=== PATIENT | male | born 1980 | race Caucasian/White ===

== ENCOUNTER 2019-04-11 17:20 | Emergency (ER) | payer OTHER ==
--- NOTE | 2019-04-11 17:25 | PDOC ---
Rapid Medical Evaluation Chief Complaint: Laceration Medical Evaluation: Allergies Allergy/AdvReac Type Severity Reaction Status Date / Time No Known Allergies Allergy Verified 05/07/18 19:10 04/11/19 17:22 I have performed a brief in-person evaluation of this patient. The patient presents with a chief complaint of: stood and cut scalp on sharp metal edge of equipment Pertinent physical exam findings: scalp laceration ~3cm to lateral left scalp, tetanus UTD I have ordered the following: nothing The patient will proceed to the ED for further evaluation. Discharge Disposition - Diagnosis Laceration - Referrals - Patient Instructions - Post Discharge Activity
[2019-04-11 17:29] VITALS: BP 120/78; PULSE 59; TEMP 98.2; BMI 27.3
--- NOTE | 2019-04-11 17:59 | PDOC ---
History of Present Illness - General Chief Complaint: Laceration Stated Complaint: HEAD INJURY Time Seen by Provider: 04/11/19 17:24 History Source: Patient - History of Present Illness Initial Comments: 04/11/19 18:08 Chief complaint: Laceration Patient 38-year-old healthy male states he was doing work in a low area, lifted his head up, cut his scalp, not wearing a helmet. No LOC. Patient states tetanus is up-to-date. Patient is ambulatory. GENERAL/CONSTITUTIONAL: No fever, weakness. dizziness HEAD, EYES, EARS, NOSE AND THROAT: No change in vision. No ear pain or discharge. No sore throat. CARDIOVASCULAR: No chest pain RESPIRATORY: No shortness of breath or cough GASTROINTESTINAL: No pain, nausea, vomiting, diarrhea or constipation GENITOURINARY: No dysuria MUSCULOSKELETAL: No neck or back pain SKIN: No rash, + laceration NEUROLOGIC: No headache, vertigo, loss of consciousness, or loss of sensation. GENERAL: The patient is awake, alert, and fully oriented, in no acute distress. HEAD: 3 cm laceration to left temporal area, scalp, no hematoma, no foreign body , no crepitus or step off. Otherwise, normal with no signs of trauma. EYES: Pupils equal, round and reactive to light, sclera anicteric, conjunctiva clear. ENT: pharynx: no erythema, no exudate, uvula midline NECK: supple CHEST: clear, nontender, rr ABD: soft, nontender BACK: no tenderness or signs of injury EXTREMITIES: Normal range of motion, no edema. NEUROLOGICAL: Normal speech, normal gait.Cranial nerves II through XII grossly intact, no gross focal abnormalities SKIN: Warm, Dry Past History - Past Medical History Allergies/Adverse Reactions: Allergies Allergy/AdvReac Type Severity Reaction Status Date / Time No Known Allergies Allergy Verified 04/11/19 17:25 Home Medications: Ambulatory Orders Cephalexin [Keflex] 1,000 mg PO BID #28 capsule 04/11/19 COPD: No - Suicide/Smoking/Psychosocial Hx Smoking History: Never smoked Information on smoking cessation initiated: No Hx Alcohol Use: No Drug/Substance Use Hx: No Substance Use Type: Cocaine *Physical Exam - Vital Signs Last Vital Signs Temp Pulse Resp BP Pulse Ox 98.2 F 59 L 19 120/78 100 04/11/19 17:23 04/11/19 17:23 04/11/19 17:23 04/11/19 17:23 04/11/19 17:23 Procedures - Laceration/Wound Repair Left Anterior Head Wound Length: 2.6 to 5.0 cm Wound Explored: clean Wound's Depth, Shape: superficial, linear Irrigated w/ Saline: Yes Betadine Prep: Yes Anesthesia: 1% Lidocaine Wound Repaired With: Sutures Suture Size/Type: 5:0, nylon Number of Sutures: 8 Layer Closure: No Sterile Dressing Applied: No Medical Decision Making - Medical Decision Making 04/11/19 18:11 Healthy 38-year-old male, tetanus up-to-date with 3 cm laceration to the left temporal area of the scalp. No hematoma, crepitus or step off, patient cut his head in a low-lying area when he lifted his head up. There is no indication for imaging. Patient will get sutures versus norberto due to better cosmetic appearance given that it's right at the hairline *DC/Admit/Observation/Transfer Diagnosis at time of Disposition: Scalp laceration - Discharge Dispostion Disposition: HOME Condition at time of disposition: Stable - Prescriptions Prescriptions: Cephalexin [Keflex] 1,000 mg PO BID #28 capsule - Referrals - Patient Instructions Printed Discharge Instructions: Laceration Repair Additional Instructions: Do not get wet for 2 days. Apply bacitracin several times a day. Take Keflex as directed, until finished After this you can gently clean it with soap and water and apply bacitracin at least 2 times daily. Have reevaluated if redness, pus or getting worse. Have sutures evaluated for removal in 7 days. 2 sutures are removed, apply sunscreen every day for at least 3 months to minimize scarring - Post Discharge Activity
== END 2019-04-11 18:08 | disposition home or self-care (01) ==
LOC: JERFT 17:20 → JER 17:20 → JERFT 18:08
PROC: 0HQ0XZZ Repair Scalp Skin, External Approach (ICD-10-PCS; principal; 2019-04-11)
DX: S01.01XA Laceration without foreign body of scalp, initial encounter (principal); W26.8XXA Contact with other sharp object(s), not elsewhere classified, initial encounter; Y93.89 Activity, other specified; Y92.89 Other specified places as the place of occurrence of the external cause; Y99.8 Other external cause status
CPT/HCPCS: 99281-25